=== PATIENT | female | born 1945 | race Caucasian/White ===

== ENCOUNTER 2017-01-12 09:00 | Outpatient (CLI) | payer MEDICARE | END 2017-01-12 09:01 | disposition home or self-care (01) | LOC: CTENTCT 09:00 | PROVIDERS: ATTEND Otolaryngology Plastic Surgery within the Head & Neck | DX: J32.9 Chronic sinusitis, unspecified (principal) | CPT/HCPCS: 70486 ==

== ENCOUNTER 2019-02-06 10:10 | Outpatient (CLI) | payer MEDICARE ==
--- NOTE | 2019-02-06 12:24 | CT ---
LOW DOSE CT SCAN OF CHEST WITHOUT IV CONTRAST FOR LUNG CANCER SCREENING: Date: 02/06/19 HISTORY: Personal history of tobacco use. Former smoker of 20+ years smoking, quit in September 2006. Smoked 2 pack s/day. COMPARISON: 08/20/16. FINDINGS: Scarring is stable in the lungs bilaterally. No pulmonary nodules are identified. No pleural or pericardial effusions are seen. There are vascular calcifications without evidence of a neurysmal dilatation of the thoracic aorta. There are degenerative changes of the spine. The 3.0 cm l ow density lesion in the right lobe of the thyroid gland is stable. IMPRESSION: Lung-RADS Category 2 - Benign findings. RECOMMENDATION: Follow-up LDCT is recommended in 12 months. POS: [facility]
== END 2019-02-06 10:11 | disposition home or self-care (01) ==
LOC: CT 10:10
PROVIDERS: ATTEND Family Medicine
DX: Z87.891 Personal history of nicotine dependence (principal)
CPT/HCPCS: G0297

== ENCOUNTER 2020-02-28 07:35 | Outpatient (CLI) | payer MEDICARE ==
--- NOTE | 2020-02-28 11:07 | CT ---
CT OF THE CHEST WITHOUT CONTRAST: Date: 02/28/2020 COMPARISON: 02/06/2019. 08/20/2016. Thyroid ultrasound 08/31/2016. HISTORY: Personal history of tobacco use. Patient had a greater than 20 pack/year smoking history and quit in September 2006. TECHNIQUE: Multiple contiguous axial images were obtained in a CT of the chest without contrast for low dose can cer screening protocol. Sagittal and coronal reformats were performed. FINDINGS: Mild emphysematous changes are seen bilaterally. There is scarring seen in the lung apices and in the posterior aspect of the left upper lobe and left lower lobe. No suspicious pulmonary nodules are see n. No pneumothorax or pleural effusions are seen. The heart is normal in size. Calcifications are seen in the aorta. No hilar or mediastinal lymphadeno yasmine are present. Degenerative changes are seen in the spine. The patient is status post cholecystectomy. The visualize d subdiaphragmatic structures are unremarkable. The chest wall soft tissues are unremarkable. There i s a stable 2.8 cm thyroid hypodensity. IMPRESSION: 1. Lung-RADS category 1. 2. Lung-RADS category S. Stable thyroid hypodensity represents the mixed solid/cystic nodule seen on thyroid ultrasound in 2017. POS: [facility]
== END 2020-02-28 07:36 | disposition home or self-care (01) ==
LOC: BICCT 07:35
PROVIDERS: ATTEND Family Medicine
DX: Z12.2 Encounter for screening for malignant neoplasm of respiratory organs (principal); Z87.891 Personal history of nicotine dependence
CPT/HCPCS: G0297

== ENCOUNTER 2024-01-13 11:28 | Outpatient (CLI) | payer MEDICARE | END 2024-01-13 11:29 | disposition home or self-care (01) | LOC: SCSRAD 11:28 | PROVIDERS: ATTEND Family Medicine | DX: M25.551 Pain in right hip (principal); M54.50 Low back pain, unspecified; M47.816 Spondylosis without myelopathy or radiculopathy, lumbar region; M16.11 Unilateral primary osteoarthritis, right hip | CPT/HCPCS: 72120 ==

== ENCOUNTER 2024-02-07 08:12 | Outpatient (CLI) | payer MEDICARE | END 2024-02-07 08:13 | disposition home or self-care (01) | LOC: NM 08:12 | PROVIDERS: ATTEND Family Medicine | DX: E83.52 Hypercalcemia (principal); E04.2 Nontoxic multinodular goiter | CPT/HCPCS: 78072; A9500 ==